=== PATIENT | male | born 1995 | race African-American/Black ===

== ENCOUNTER 2016-12-11 22:08 | Emergency (ER) | payer MEDICAID, OTHER ==
[~2016-12-11] VITALS: Ht 180.3 cm; Wt 100.0 kg
[~2016-12-11 22:08] MED LIST: IBUP800T23 PO
[2016-12-11 22:10] VITALS: BP 142/77; PULSE 89; RESP 18; TEMP 98.9; O2SAT 97
[2016-12-11] MEDS ORDERED: KETOROLAC TROMETHAMINE 60 MG/2 ML (IM) VIAL IM ONE (22:30)
--- NOTE | 2016-12-11 22:30 | PD ---
HPI Chief Complaint: Injury Time Seen by Provider: 22:30 Travel History International Travel<30 days: No Contact w/Intl Traveler<30days: No Traveled to known affect area: No History of Present Illness HPI 21-year-old male presents to the emergency department for evaluation right knee pain. Patient states he was playing football when he felt like his foot stuck and then he was struck by a person injuring his knee. Patient states he went down on his side. Did not hit his head or lose consciousness. States that it has been difficult to ambulate on the right lower extremity since secondary knee pain. Pain is mostly anterior. Patient has had previous meniscus repair on the right knee. Denies alterations in sensation. Has no other symptoms to report. PFSH Past Medical History Asthma: Yes Respiratory: Yes (ASTHMA) Immunizations Current: Yes Social History Alcohol Use: No Tobacco Use: No Substance Use: No Allergies-Medications (Allergen,Severity, Reaction): Coded Allergies: No Known Allergies (Verified , 12/11/16) Reported Meds & Prescriptions Reported Meds & Active Scripts Active Lortab (Hydrocodone-Acetaminophen) 5-325 Mg Tab 1 Tab PO Q6H PRN Ibuprofen 800 Mg Tab 800 Mg PO Q8H PRN Review of Systems Except as stated in HPI: all other systems reviewed are Neg Physical Exam Narrative GENERAL: Well-nourished, well-developed male patient no acute distress SKIN: Warm and dry. HEAD: Normocephalic. EYES: No scleral icterus. No injection or drainage. NECK: Supple, trachea midline. No JVD or lymphadenopathy. CARDIOVASCULAR: Regular rate and rhythm without murmurs, gallops, or rubs. RESPIRATORY: Breath sounds equal bilaterally. No accessory muscle use. GASTROINTESTINAL: Abdomen soft, non-tender, nondistended. MUSCULOSKELETAL: No cyanosis, or edema. Assessment of the right knee is limited due to pain. Patient will not cooperative flex. Tenderness with palpation on the anterior lateral and medial aspects of it. Distal pulses are palpable. Cap refill is within normal limits. No significant laxity with valgus or varus stress. BACK: Nontender without obvious deformity. No CVA tenderness. Data Data Last Documented VS Vital Signs Date Time Temp Pulse Resp B/P Pulse Ox O2 Delivery O2 Flow Rate FiO2 12/11/16 22:10 98.9 89 18 142/77 97 Room Air Orders Ketorolac Inj (Toradol Inj) (12/11/16 22:30) Knee, Complete (4vws) (12/11/16 ) Splint Or Brace Apply/Monitor (12/11/16 23:00) Crutches (12/11/16 ) Immobilizer Knee 20 Inch (12/11/16 ) MDM Medical Decision Making Medical Screen Exam Complete: Yes Emergency Medical Condition: Yes Medical Record Reviewed: Yes Differential Diagnosis fracture versus contusion versus dislocation versus effusion versus internal derangement Narrative Course 21-year-old male presents mostly department for evaluation right knee injury. X -ray imaging is acute bony abnormality. Patient is placed in a knee immobilizer and provided crutches. He is advised to follow-up with station air traffic control specialist. He agrees to return immediately with any acute worsening of symptoms. Diagnosis Primary Impression: Right knee injury Qualified Code: S89.91XA - Right knee injury, initial encounter Referrals: Orthopaedic Surgeon Primary Care Physician Patient Instructions: General Instructions, Knee Sprain (ED) Additional Instructions: Ice and elevate to reduce swelling Knee immobilizer for support and comfort Follow-up with station air traffic control specialist Return immediately to the emergency department with any acute worsening symptoms Med/Other Pt SpecificInfo: Prescription(s) given Scripts Hydrocodone-Acetaminophen (Lortab)5-325 Mg Tab1 Tab PO Q6H PRN (PAIN GREATER THAN 5) #12 TAB Ref 0 Prov:Jurgen Morales MD 12/11/16 Ibuprofen 800 Mg Wun196 Mg PO Q8H PRN (Pain/Inflammation) #30 TAB Ref 0 Prov:Hoda Finch 12/11/16 Disposition: 01 DISCHARGE HOME Condition: Stable Hoda Finch Dec 11, 2016 22:30
--- NOTE | 2016-12-11 22:56 | RADRPT ---
EXAM DATE/TIME: 12/11/2016 22:51 [facility] COMPARISON: No previous studies available for comparison. INDICATIONS : Patient was playing football and right leg gave out. No known contact or injury. Complains of right k nee pain. MEDICAL HISTORY : None. SURGICAL HISTORY : Right torn meniscus repair. ENCOUNTER: Initial ACUITY: 1 day PAIN SCORE: 10/10 LOCATION: Right Knee FINDINGS: Four view examination of the right knee demonstrates no evidence of fracture or dislocation. Bony mi neralization is normal. The articular surfaces are intact. The suprapatellar soft tissues have a no rmal configuration. CONCLUSION: No acute fracture. Olu Noguera MD on December 11, 2016 at 22:54 Board Certified Radiologist. This report was verified electronically.
[2016-12-11] MEDS ORDERED: IBUP800T23 PO (23:03)
[2016-12-11] MEDS ORDERED: HYDR-3533 PO (23:04)
== END 2016-12-11 23:33 | disposition home or self-care (01) ==
LOC: NEPB 22:08
DX: S89.91XA Unspecified injury of right lower leg, initial encounter (principal); W51.XXXA Accidental striking against or bumped into by another person, initial encounter; Y93.61 Activity, american tackle football
CPT/HCPCS: 73564; 96372; 99283; E0113; J1885; L1830

== ENCOUNTER 2017-09-26 18:49 | Emergency (ER) | payer SELFPAY ==
[~2017-09-26] VITALS: Ht 180.3 cm; Wt 104.1 kg
[~2017-09-26 18:49] MED LIST changes: +ALBU1AER INH; +HYDR-3533 PO; +IBUP1TAB7 PO; -IBUP800T23 PO; +SULF1TAB47 PO
[2017-09-26 18:57] VITALS: BP 151/65; PULSE 65; RESP 18; TEMP 98.6; O2SAT 97
[2017-09-26] MEDS ORDERED: ROBA500T PO (19:33)
[2017-09-26] MEDS ORDERED: IBUP1TAB7 PO (19:33)
--- NOTE | 2017-09-26 19:33 | PD ---
HPI Chief Complaint: Musculoskeletal Complaint Time Seen by Provider: 19:12 Travel History International Travel<30 days: No Contact w/Intl Traveler<30days: No Traveled to known affect area: No History of Present Illness HPI 21-year-old male here for evaluation of low back pain. Patient cannot recall specific injury or trauma. He denies hematuria, dysuria, urinary frequency. He denies fever, saddle anesthesia, incontinence, paresthesia or weakness of his extremities. Symptom severity is moderate. Worse with movement and relieved with rest. PFSH Past Medical History Medical History: Denies Significant Hx Asthma: Yes Diminished Hearing: No Respiratory: Yes (ASTHMA) Immunizations Current: Yes Tetanus Vaccination: < 5 Years Influenza Vaccination: No ?: Not Social History Alcohol Use: No Tobacco Use: No Substance Use: No Allergies-Medications (Allergen,Severity, Reaction): Coded Allergies: No Known Allergies (Verified Adverse Reaction, Unknown, 09/26/17) Reported Meds & Prescriptions Reported Meds & Active Scripts Active No Active Prescriptions or Reported Medications Review of Systems Except as stated in HPI: all other systems reviewed are Neg Physical Exam Narrative GENERAL: Alert male in no distress. SKIN: Warm and dry. HEAD: Normocephalic. EYES: No scleral icterus. No injection or drainage. NECK: Supple, trachea midline. No JVD or lymphadenopathy. CARDIOVASCULAR: Regular rate and rhythm without murmurs, gallops, or rubs. RESPIRATORY: Breath sounds equal bilaterally. No accessory muscle use. GASTROINTESTINAL: Abdomen soft, non-tender, nondistended. MUSCULOSKELETAL: No cyanosis, or edema. No muscle strength and sensation in the extremities. BACK: Generalized lumbar tenderness. No midline spine tenderness. Without obvious deformity. No CVA tenderness. Data Data Last Documented VS Vital Signs Date Time Temp Pulse Resp B/P (MAP) Pulse Ox O2 Delivery O2 Flow Rate FiO2 09/26/17 18:57 98.6 65 18 151/65 (93) 97 MDM Medical Decision Making Medical Screen Exam Complete: Yes Emergency Medical Condition: Yes Differential Diagnosis Lumbar strain, sciatica, herniated disc Narrative Course 21-year-old male here with nontraumatic low back pain. Patient has a normal neurologic exam. He'll be treated for lumbar strain Diagnosis Primary Impression: Lumbar strain Qualified Codes: S39.012A - Strain of muscle, fascia and tendon of lower back , initial encounter Referrals: Primary Care Physician Scripts Methocarbamol (Robaxin) 500 Mg Tab 500 MG PO TID for Muscle Spasm, #12 TAB 0 Refills Prov: Julieta Fenton 09/26/17 Ibuprofen (Ibuprofen) 800 Mg Tab 800 MG PO Q6HR Y for PAIN, #40 TAB 0 Refills Prov: Julieta Fenton 09/26/17 Disposition: 01 DISCHARGE HOME Condition: Stable Julieta Fenton Sep 26, 2017 19:33
== END 2017-09-26 19:42 | disposition home or self-care (01) ==
LOC: PHEFT 18:49
DX: S39.012A Strain of muscle, fascia and tendon of lower back, initial encounter (principal); X58.XXXA Exposure to other specified factors, initial encounter
CPT/HCPCS: 99283